=== PATIENT | male | born 1945 | race Caucasian/White ===

== ENCOUNTER 2017-11-05 08:06 | Outpatient (CLI) | payer MEDICARE, OTHER ==
[~2017-11-05] VITALS: Ht 172.7 cm; Wt 84.1 kg
--- NOTE | ~2017-11-05 | HEMODYNAMI ---
PATIENT:KATHERINE PINTO MEDICAL RECORD: [id number] : 41 LOCATION:D.CAT ADMISSION DATE: 11/05/17 Generatedon:11/05/20179:44 Patient name: KATHERINE PINTO Patient #: [id number] SSN: : 1945 Date of study: 11/05/2017 Page: Of Hemodynamic Procedure Report Patient Data Patient Demographics Procedure consent was obtained First Name: KATHERINE Gender: Male Last Name: MILLIE : 1945 Middle Initial: O Age: 72 year(s) Patient #: [id number] Race: Unknown Additional ID: [id number] Contact details Address: [address] [place] [address] ROAD State: [place] City: [place] Zip code: [address] Past Medical History Allergies Allergen Reaction Date Comments Reported Codeine 11/05/2017 Admission Admission Data Admission Date: 11/05/2017 Admission Time: 8:06 Procedure Procedure Types Cath Procedure Diagnostic Procedure LHC LHC w/Coronaries PCI Procedure Coronary Stent Coronary Stent Initial Miscellaneous Procedures Moderate Sedation up to 30 minutes Procedure Description Procedure Date Procedure Date: 11/05/2017 Procedure Start Time: 9:26 Procedure End Time: 9:43 Procedure Staff Name Function Chetan Bean MD Performing Physician Tish Arnold RT Scrub Steve Hines RN Nurse Jazmine Mccracken RT Monitor Procedure Data Cath Procedure Fluoroscopy Diagnostic fluoroscopy Total fluoroscopy Time: 7 time: 7 min min Diagnostic fluoroscopy Total fluoroscopy dose: dose: 403.47 mGy 403.47 mGy Contrast Material Contrast Material Type Amount (ml) Isovue 300 131 Entry Location Entry Primary Successful Side Size Upsize Upsize Entry Closure [place] ccessful Closure Location (Fr) 1 (Fr) 2 (Fr) Remarks Device Remarks Radial Right 6 Fr Mechanical artery Short Compression Estimated blood loss: 10 ml Diagnostic catheters Device Type Used For End Catheter Placement DIAGNOSTIC [place] 110cm 5 LV Angiography Fr catheter ([id number]) DIAGNOSTIC [place] 110cm 5 Left Coronary Fr catheter ([id number]) Angiography DIAGNOSTIC [place] 110cm 5 Right Coronary Fr catheter ([id number]) Angiography Procedure Complications No complications Procedure Medications Medication Administration Route Dosage Oxygen NC 2 l/min Heparin Flush Bag added to field 2 bags (1000units/500ml NS) 0.9% NaCl I.V. 100 ml/hr Radial Cocktail added to field 1 syringe (Verapomil 2mg/Nitro 400mcg/Heparin 1500units) Fentanyl I.V. 50 mcg Versed I.V. 1 mg Radial Cocktail I.A. 1 syringe (Verapomil 2mg/Nitro 400mcg/Heparin 1500units) Fentanyl I.V. 50 mcg Versed I.V. 1 mg Heparin Bolus I.V. 4000 units Integrilin (Bolus I.V. 7.3 ml 2mg/ml) Integrilin (Bolus wasted 2.7 ml 2mg/ml) Plavix P.O. 600 mg Hemodynamics Rest Heart Rate: 56 (bpm) Snapshots Pre Cath Intra NCS Post Cath Vital Signs Time Heart Resp SPO2 etCO2 NIBP (mmHg) Rhythm Pain Sedation Rate (ipm) (%) (mmHg) Status Level (bpm) 9:19:32 55 18 93 36.8 194/79(139) NSR 0 (11) 10(A) , No pain 9:24:02 55 17 97 32.3 175/83(147) NSR 0 (11) 9(A) , No pain 9:28:18 64 18 90 32.3 123/70(99) NSR 0 (11) 9(A) , No pain 9:32:30 56 19 92 29.2 130/69(105) NSR 0 (11) 9(A) , No pain 9:36:50 56 18 94 34.5 125/62(107) NSR 0 (11) 9(A) , No pain 9:41:08 56 19 95 33 139/64(114) NSR 0 (11) 9(A) , No pain 9:42:59 56 17 95 38.2 133/66(110) NSR 0 (11) 9(A) , No pain Medications Time Medication Route Dose Verified Delivered Reason Notes Effectiveness by by 9:19:30 Oxygen NC 2 l/min Chetan Wilson Per physician Vikas Hines RN 9:19:39 Heparin Flush added 2 bags Chetan Wilson used for Bag to Vikas Hines RN procedure (1000units/500ml field NS) 9:19:48 0.9% NaCl I.V. 100 Chetan Wilson Per physician ml/hr Vikas Hines RN 9:19:56 Radial Cocktail added 1 Chetan Wilson used for (Verapomil to syringe Vikas Hines RN procedure 2mg/Nitro field 400mcg/Heparin 1500units) 9:23:18 Fentanyl I.V. 50 mcg Chetan Wilson for sedation Vikas Hines RN 9:23:25 Versed I.V. 1 mg Chetan Hoffmany for sedation Vikas Hines RN 9:26:20 Radial Cocktail I.A. 1 Chetan Chetan for (Verapomil syringe Vikas Bean MD vasodilation 2mg/Nitro 400mcg/Heparin 1500units) 9:28:02 Fentanyl I.V. 50 mcg Chetan Wilson for sedation Vikas Hines RN 9:28:08 Versed I.V. 1 mg Chetan Wilson for sedation Vikas Hines RN 9:32:55 Heparin Bolus I.V. 4000 Chetan Wilson for units Vikas Hines RN anticoagulation 9:34:42 Integrilin I.V. 7.3 ml Chetan Wilson for (Bolus 2mg/ml) Vikas Hines RN anticoagulation 9:34:51 Integrilin wasted 2.7 ml Chetan Wilson for (Bolus 2mg/ml) Vikas Hines RN anticoagulation 9:43:10 Plavix P.O. 600 mg Chetan Wilson for Vikas Hines RN antiplatelet therapy Procedure Log Time Note 8:55:56 Steve Hines RN sent for patient. Start room use. 9:02:16 Time tracking: Regular hours 9:02:20 Plan of Care:Hemodynamics will remain stable., Cardiac rhythm will remain stable., Comfort level will be maintained., Respiratory function will remain adequate., Patient/ family verbilizes understanding of procedure., Procedure tolerated without complication., Recovers from procedure without complications.. 9:02:22 Signed procedure consent form obtained from patient. 9:09:50 Patient received from Pre/Post Procedure Room to [facility] 3 Alert and oriented. Tansferred to table in Supine position. 9:09:51 Warm blankets applied, and osman hugger turned on for patient comfort. 9:09:52 Correct patient and procedure confirmed by team. 9:09:53 ECG and BP/O2 sat monitors applied to patient. 9:17:09 Vital chart was started 9:19:30 Oxygen 2 l/min NC was administered by Steve Hines RN; Per physician; 9:19:39 Heparin Flush Bag (1000units/500ml NS) 2 bags added to field was administered by Steve Hines RN; used for procedure; 9:19:48 0.9% NaCl 100 ml/hr I.V. was administered by Steve Hines RN; Per physician; 9:19:56 Radial Cocktail (Verapomil 2mg/Nitro 400mcg/Heparin 1500units) 1 syringe added to field was administered by Steve Hines RN; used for procedure; 9:21:15 Baseline sample Acquired. 9:21:18 Rhythm: sinus rhythm 9:21:34 Full Disclosure recording started 9:21:51 H&P Date Dictated: 11/05/2017 New H&P dictated by physician.. 9:21:52 Pre-procedure instructions explained to patient. 9:21:52 Pre-op teaching completed and patient verbalized understanding. 9:21:54 Family in waiting room. 9:21:56 Patient NPO since Midnight. 9:22:04 Patient allergic to Codeine 9:22:06 Is the patient allergic to Iodine/contrast media? No. 9:22:14 Is patient on blood thinner?No 9:22:16 Patient diabetic? No. 9:22:18 Previous problem with sedation/anesthesia? No ? 9:22:19 Snore? Yes 9:22:20 Sleep apnea? No 9:22:21 Deviated septum? No 9:22:27 Opens mouth fully? Yes 9:22:27 Sticks out tongue? Yes 9:22:30 Airway obstruction? No ? 9:22:32 Dentures? Yes In 9:22:36 Pre procedure: right dorsailis pedis pulse 2+ Normal; easily identifiable; not easily obliterated 9:22:37 Modified Demarcus's test Ulnar < 7 seconds 9:22:39 Patient pain scale 0/10 ?. 9:22:46 IV patent on arrival in left hand with 0.9% NaCl at [facility]. 9:22:51 Lab results completed and on chart. 9:22:54 Right Radial & Right Groin area was prepped with chlora-prep and draped in sterile fashion 9::55 Alarms reviewed by R. N. 9::55 Sharps counted by scrub and verified by R.N. 9::57 Final Timeout: patient, procedure, and site verified with staff and physician. All members of the team are in agreement. 9::58 Right Radial site verified by team. 9:23:03 Physical assessment completed. ASA score P 2 - A patient with mild systemic disease as per Chetan Bean MD. 9:23:06 Sedation plan: IV Moderate Sedation Medication:Versed, Fentanyl 9:23:18 Fentanyl 50 mcg I.V. was administered by Steve Hines RN; for sedation; 9::25 Versed 1 mg I.V. was administered by Steve Hines RN; for sedation; 9::01 Zero performed for pressure channel P1 9:26:04 Procedure started. 9:26:09 Local anesthetic to right radial artery with Lidocaine 2% by Chetan Bean MD.INITIAL ACCESS ONLY 9:26:17 A 6 Fr Short sheath was inserted into the Right Radial artery 9:26:19 Zero performed for pressure channel P1 9:26:20 Radial Cocktail (Verapomil 2mg/Nitro 400mcg/Heparin 1500units) 1 syringe I.A. was administered by Chetan Bean MD; for vasodilation; 9:26:27 Use device set Radial Dx or PCI 9:26:29 ACIST Syringe (29130) opened to sterile field. 9:26:29 Medline Cath Pack ([id number]) opened to sterile field. 9:26:30 Bag Decanter () opened to sterile field. 9:26:31 SHEATH 6FR Slender ([id number]) opened to sterile field. 9:26:31 DIAGNOSTIC WIRE .035 260cm J wire (568724) opened to sterile field. 9:26:32 ACIST Hand Control (50790) opened to sterile field. 9:26:32 ACIST Manifold (49850) opened to sterile field. 9:26:33 Tegaderm 4 x 4 (1626W) opened to sterile field. 9:26:33 MBrace Wrist Support ([id number]) opened to sterile field. 9:27:28 A DIAGNOSTIC [place] 110cm 5 Fr catheter (512147) was advanced over the wire and used for LV Angiography. 9:28:02 Fentanyl 50 mcg I.V. was administered by Steve Hines RN; for sedation; 9:28:08 Versed 1 mg I.V. was administered by Steve Hines RN; for sedation; 9:29:36 LV gram done using GRAVES 9:29:39 EF : 60 % 9::43 Injector settings: Ml/sec: 5, Volume: 15, 9:30:02 A DIAGNOSTIC [place] 110cm 5 Fr catheter (995767) was advanced over the wire and used for Left Coronary Angiography. 9:31:22 Use device set TAU PCI 9:31:26 INFLATOR Merit BasixCompak (TT9192) opened to sterile field. 9:31:36 CHOICE PT Extra Support 182cm wire ([id number]) opened to sterile field. 9:32:03 A DIAGNOSTIC [place] 110cm 5 Fr catheter (652798) was advanced over the wire and used for Right Coronary Angiography. 9:32:07 Catheter removed. 9:32:25 GUIDE 6FR EBU 3.0 SH catheter ([id number]) opened to sterile field. 9:32:55 Heparin Bolus 4000 units I.V. was administered by Steve Hines RN; for anticoagulation; 9:33:16 6 Fr EBU 3.0 SH guide catheter was inserted over the wire 9:33:45 Choice PT ES wire advanced. 9:34:42 Integrilin (Bolus 2mg/ml) 7.3 ml I.V. was administered by Steve Hines RN; for anticoagulation; 9:34:51 Integrilin (Bolus 2mg/ml) 2.7 ml wasted was administered by Steve Hines RN; for anticoagulation; 9:36:59 GUIDE 6FR EBU 4.0 guide catheter ([id number]) opened to sterile field. 9:39:31 Inflation Number: 1 A ZEHRA RX 2.25 x 12 stent ([id number]) was prepped and advanced across the Prox LAD. The stent was deployed at 9 DENNIS for 0:08 (min:sec). 9:39:53 Stent catheter was removed intact over wire. 9:39:54 Wire removed. 9:39:54 Guide catheter removed. 9:40:01 Sheath removed intact; hemostasis achieved with Mechanical Compression to the Right Radial artery. 9:40:06 TR BAND Standard ([id number]) opened to sterile field. 9:40:23 Procedure ended.(Physican Out) 9:40:39 Fluoroscopy time 07.00 minutes. 9:40:46 Fluoroscopy dose: 403.47 mGy 9:40:46 Flurop Dose total: 403.47 9:40:49 Contrast amount:Isovue 300 131ml. 9:40:51 Sharps counted by scrub and verified by R.N. 9:40:52 TR band inflated with 11cc of air. 9:40:53 Insertion/operative site no bleeding no hematoma. 9:40:58 Post right radial artery:stable, clean and dry 9:41:00 Post Procedure Pulses reassessed and unchanged 9:41:03 Post-procedure physical assessment completed. ASA score P 2 - A patient with mild systemic disease as per Chetan Bean MD. 9:41:05 Post procedure rhythm: unchanged. 9:41:08 Estimated blood loss: 10 ml 9:41:09 Post procedure instruction explained to patient.Patient verbalizes understanding. 9:41:09 Patient needs reinforcement of post procedure teaching. 9:41:21 Procedure type changed to Cath procedure, Diagnostic procedure, LHC, LHC w/Coronaries, PCI procedure, Coronary Stent, Coronary Stent Initial, Miscellaneous Procedures, Moderate Sedation up to 30 minutes 9:41:28 Procedure Complication : No complications 9:41:48 See physician's report for complete and final results. 9:43:10 Plavix 600 mg P.O. was administered by Steve Hines RN; for antiplatelet therapy; 9:43:29 Procedure and supply charges have been captured, reviewed, submitted and are correct. 9:43:30 Vital chart was stopped 9:43:32 Report given to Pre/Post Procedure Room. 9:43:34 Patient transfered to Pre/Post Procedure Room with Stretcher. 9:43:37 Procedure ended. 9:43:37 Full Disclosure recording stopped 9:43:49 End room use (Document Last) Intervention Summary Intervention Notes Time ActionType Lesion and Equipment Used Action# Pressure Duration Attributes 9:39:31 [address] stent Prox LAD ZEHRA RX 2.25 x 1 9 00:08 12 stent ([id number]) Device Usage Item Name Manufacture Quantity Catalog Number Hospital Part Current M inimal Lot# / Charge Number Stock Stock Serial# Code ACIST Syringe Acist 1 66048 239458 976457 566916 2 0 (65322) Medical Systems Inc Medline Cath Cardinal 1 [id number] 111257 53501 951245 5 Pack Health ([id number]) Bag Decanter Microtek 1 2001S 758705 38458 038423 5 () Medical Inc. SHEATH 6FR Terumo 1 [id number] 153946 377523 553359 4 0 Slender ([id number]) DIAGNOSTIC [place] 1 636912 808282 887529 107110 3 0 WIRE .035 260cm J wire (182872) ACIST Hand Acist 1 65459 566225 467372 412353 5 Control Medical (35833) Systems Inc ACIST Manifold Acist 1 41022 583911 006516 931888 5 (56680) Medical Systems Inc Tegaderm 4 x 4 3M 1 1626W 721709 880191 534329 5 (1626W) MBrace Wrist Advanced 1 140-0250-00 714447 27655 184042 5 Support Vascular ([id number]) Dynamics DIAGNOSTIC Terumo 1 40-5013 014515 179591 767965 5 [place] 110cm 5 Fr catheter (519468) INFLATOR Merit Merit 1 GC7777 580692 844149 378731 1 5 ProMetic Life SciencesazSarkitech Sensors (OP9379) CHOICE PT [place] 1 [id number] 117600 067154 647990 5 Extra Support Scientific 182cm wire ([id number]) GUIDE 6FR EBU Medtronic 1 [id number] 757063 20287 381249 0 3.0 SH catheter ([id number]) GUIDE 6FR EBU Medtronic 1 [id number] 652087 59644 921694 1 4.0 guide catheter (EV7PVM34) ZEHRA RX 2.25 x Medtronic 1 [id number] 439868 6113605 172939 5 [id number] 12 stent ([id number]) TR BAND Terumo 1 [id number] 649248 433372 570027 4 0 Standard ([id number]) Signature Audit [place] Stage Time Signature Unsigned Intra-Procedure 11/05/2017 Jazmine 9:44:29 AM Counts RT(R) Signatures Monitor : Jazmine Signature : Counts RT Date : Time : [address] [place] [address]
--- NOTE | ~2017-11-05 | OP ---
PATIENT NAME: KATHERINE PINTO MEDICAL RECORD: [id number] :41 LOCATION:D.CAT ADMISSION DATE: SURGEON: TUCKER EDWARDS MD DATE OF OPERATION: 11/05/2017 PROCEDURES: 1. PTCA stent to LAD. 2. Left heart catheterization. 3. Selective coronary angiography. 4. Left ventriculogram. INDICATION: Angina and coronary artery disease. PROCEDURE IN DETAIL: After informed consent was obtained and after detailed explanation of risks, benefits as well as alternative therapies, the patient elected to proceed with angiogram and angioplasty. The right radial area was prepped and draped in normal sterile fashion. The right radial artery was cannulated via modified Seldinger technique with placement of 6-Chilean sheath. All catheters exchanged through this sheath. FINDINGS: Left ventriculogram was performed in standard 30-degree GRAVES view, reveals preserved cardiac wall motion, ejection fraction 50%. SELECTIVE CORONARY ANGIOGRAPHY: 1. Left main showed no significant angiographic disease. 2. Left anterior descending at the bifurcation of the LAD diagonal has 80-85% stenosis. This includes the ostium of the diagonal. 3. Left circumflex shows moderate irregularities, but no flow-limiting stenosis. 4. Right coronary artery has moderate irregularities, but no flow-limiting stenosis. PTCA STENT OF THE LAD: We placed a stent in the LAD and the ostium of the diagonal. It was a 2.25 x 12 [place] stent. Result was 0% residual stenosis. OVERALL IMPRESSION: Successful percutaneous transluminal coronary angioplasty stent of the left anterior descending and diagonal going from 85+ percent initial stenosis to 0% residual. TRANSINT:[id number] Voice Confirmation ID: [id number] DOCUMENT ID: [id number] TUCKER EDWARDS MD at 1323 CC: [id number] DICTATION DATE: 11/05/17 0944 CIGAR MAKING MACHINE SUPERVISOR: 11/05/17 1124 DEP CLI 11/05/17 [place] [id number] [place] [id number]
--- NOTE | ~2017-11-05 | HP ---
PATIENT: KATHERINE PINTO MEDICAL RECORD: [id number] ACCOUNT: [id number] LOCATION:HATTIE : 41 ADMISSION DATE: 11/05/17 HISTORY AND PHYSICAL EXAMINATION DIAGNOSES: 1. Angina. 2. Shortness of breath. 3. Coronary artery disease. 4. Abnormal nuclear stress test. 5. Hyperlipidemia. 6. Hypertension. HISTORY OF PRESENT ILLNESS: This is a gentleman who presents with anginal symptomatology, shortness of breath, underwent risk stratification with stress testing and Cardiolite imaging revealing significant reversibility, now brought for cardiac catheterization. PHYSICAL EXAMINATION: GENERAL APPEARANCE: Well-nourished, well-developed, appears stated age. Level of distress, comfortable. PSYCHIATRIC: Mental status, alert, normal affect. Orientation, oriented to time, place and person. EYES: Lids and conjunctiva, noninjected. No discharge, no pallor. ENT: Lips, teeth, gums, normal dentition. Oropharynx, no cyanosis, no pallor. NECK: Carotid arteries, bilateral normal upstroke, no bruits, no thrills. JUGULAR VEINS: No jugular venous pressure or distention. CERVICAL LYMPH NODES: Nontender, nonenlarged. THYROID: Not enlarged. Nontender. No nodules. LUNGS: Respiratory effort, unlabored. CHEST: Normal curvature. No thoracic deformity. No chest wall tenderness. Percussion, resonant. Auscultation, clear. No wheezes, no rales, no rhonchi. CARDIOVASCULAR: Precordial exam, nondisplaced. No heaves or pericardial thrills. Rate and rhythm, regular. Heart sounds, normal S1, normal S2. No S3, no gallop, no rub. Systolic murmur, not heard. Diastolic murmur, not heard. EXTREMITIES: No cyanosis, no edema. Peripheral pulses, full and equal in all extremities, except as noted. No bruits appreciated. ABDOMEN: Soft, nondistended. Normal aorta. No bruit. Nontender. No masses. Liver, nontender, no hepatomegaly. Spleen, nontender, no splenomegaly. MUSCULOSKELETAL: No joint tenderness. No joint swelling. No erythema. NEUROLOGICAL: Normal gait, normal strength, normal tone. SKIN: Warm and dry. REVIEW OF SYSTEMS: The patient reports easy bruising but reports no swollen glands. The patient reports no fever, no night sweats, no significant weight gain, no significant weight loss. No significant exercise tolerance. The patient reports no dry eyes, no irritation, no vision change. Patient reports no difficulty hearing and no ear pain. Patient reports no frequent nose bleeds or nose and sinus problems. Patient reports on arm pain on exertion. No shortness of breath while lying down. No history of heart murmur. Patient reports no cough, no wheezing or coughing up blood. Patient reports no abdominal pain, no vomiting. Normal appetite. No diarrhea and not vomiting blood. No nausea and no constipation. Patient reports no incontinence. No difficulty urinating. No hematuria. No increased frequency. Patient reports no muscle aches. No weakness, no arthralgias, no back pain. No swelling of the HISTORY AND PHYSICAL [id number] SHARPKATHERINE O extremities. Patient reports no abnormal mole, no jaundice, no rashes. Reports no loss of consciousness. No weakness and no numbness. No seizures, dizziness, or headaches. The patient reports no depression, no sleep disturbance, feeling safe in a relationship and no alcohol abuse. Patient reports on fatigue. Reports no runny nose or sinus pressure. No itching, no hives, and no frequent sneezing. OVERALL IMPRESSION: Anginal symptomatology with abnormal nuclear stress test in a patient with a past history of coronary artery disease, most likely he has significant coronary artery disease. We will proceed with coronary angiography. Further care depends upon findings of the angiography. TRANSINT:[id number] Voice Confirmation ID: [id number] DOCUMENT ID: [id number] TUCKER EDWARDS MD at 1323 CC: [id number] DICTATION DATE: 11/05/17847 DIRECTOR DIGITAL STRATEGY: 11/05/17 0902 DEP CLI 11/05/17 [facility] [address] [place] [address]
[~2017-11-05 08:06] MED LIST: BAYER CHEWABLE81 MG PO; PLAVIX75 MG PO; PRAVACHOL40 MG PO; ZIAC 10-6.25 MG1 TAB PO
[2017-11-05] MEDS ORDERED: ZYLOPRIM100 MG PO (08:41)
[2017-11-05] MEDS ORDERED: CENTRUM MEN'S1 EACH PO (08:41)
[2017-11-05 08:50] VITALS: BP 212/84; Ht 172.7 cm; Wt 84.1 kg
[2017-11-05 08:58] LABS: BASOPHILS 0.1 % (0-2); EOSINOPHILS 1.6 % (0-7); HEMATOCRIT 44.2 % (42.0-54.0); HEMOGLOBIN 15.6 g/dL (13.5-17.5); IMMATURE GRANULOCYTES 0.2 % (0-5); LYMPHOCYTES 29.9 % (15-50); MCH 34.2 pg (26.0-34.0); MCHC 35.3 g/dL (31.0-37.0); MCV 96.9 fL (80.0-100.0); MEAN PLATELET VOLUME 10.4 fL (7.4-10.4); MONOCYTES 8.1 % (2-11); NEUTROPHILS 60.1 % (40-80); RBC 4.56 10x6/uL (4.20-6.10); RDW 12.4 % (11.5-14.5); WBC 8.8 10x3/uL (4.8-10.8)
[2017-11-05 09:02] LABS: PLATELET COUNT 162 10x3/uL (130-400)
[2017-11-05 09:15] LABS: ANION GAP 14.8 mmol/L (8-16); CALCIUM 9.3 mg/dL (8.5-10.1); CARBON DIOXIDE 24.1 mmol/L (21.0-32.0); CREATININE - SERUM 1.3 mg/dL (0.6-1.3); POTASSIUM - SERUM 3.9 mmol/L (3.5-5.1)
[2017-11-05] MEDS ORDERED: PLAVIX75 MG PO (10:22)
== END 2017-11-05 13:45 | disposition home or self-care (01) ==
LOC: D.CATH 08:06
PROVIDERS: Internal Medicine Interventional Cardiology
DX: I25.119 Atherosclerotic heart disease of native coronary artery with unspecified angina pectoris (principal); E78.5 Hyperlipidemia, unspecified; R06.02 Shortness of breath; I10 Essential (primary) hypertension; R94.30 Abnormal result of cardiovascular function study, unspecified; Z01.812 Encounter for preprocedural laboratory examination
CPT/HCPCS: 93458; C9600

== ENCOUNTER 2018-08-14 08:00 | Outpatient (CLI) | payer MEDICARE, OTHER ==
[~2018-08-14 08:00] MED LIST changes: +CENTRUM MEN'S1 EACH PO; +ZYLOPRIM100 MG PO
[2018-08-14] MEDS ORDERED: OMEPRAZOLE20 M1 PO (14:10)
[2018-08-19 13:17] VITALS: BMI 30.6
== END 2018-08-14 08:01 | disposition home or self-care (01) ==
LOC: D.OPS 08:00 → D.US 15:00
DX: I71.4 Abdominal aortic aneurysm, without rupture (principal); Z01.810 Encounter for preprocedural cardiovascular examination; Z01.811 Encounter for preprocedural respiratory examination; Z01.812 Encounter for preprocedural laboratory examination; Z53.9 Procedure and treatment not carried out, unspecified reason

== ENCOUNTER 2018-08-18 05:05 | Inpatient (IN) | payer MEDICARE, OTHER ==
[2018-08-14 15:25] LABS: BASOPHILS 0.1 % (0-2); EOSINOPHILS 1.5 % (0-7); HEMATOCRIT 43.1 % (42.0-54.0); HEMOGLOBIN 15.5 g/dL (13.5-17.5); IMMATURE GRANULOCYTES 0.4 % (0-5); LYMPHOCYTES 27.4 % (15-50); MCH 34.8 pg (26.0-34.0); MCV 96.6 fL (80.0-100.0); MEAN PLATELET VOLUME 10.2 fL (7.4-10.4); MONOCYTES 8.2 % (2-11); NEUTROPHILS 62.4 % (40-80); PLATELET COUNT 173 10x3/uL (130-400); RBC 4.46 10x6/uL (4.20-6.10); RDW 12.7 % (11.5-14.5); WBC 8.2 10x3/uL (4.8-10.8)
[2018-08-14 15:32] LABS: APPEARANCE CLEAR (CLEAR); BILIRUBIN NEGATIVE (NEGATIVE); COLOR YELLOW (YELLOW); GLUCOSE NEGATIVE (NEGATIVE); KETONE NEGATIVE (NEGATIVE); NITRITE NEGATIVE (NEGATIVE); PROTEIN NEGATIVE (NEGATIVE); SPECIFIC GRAVITY 1.015 (1.005-1.020); UROBILINOGEN NORMAL (NORMAL)
[2018-08-14 15:35] LABS: INR 0.93 (0.85-1.17)
[2018-08-14 15:56] LABS: ALBUMIN 3.7 g/dL (3.4-5.0); ANION GAP 10.7 mmol/L (8-16); BILIRUBIN - TOTAL 1.25 mg/dL (0.2-1.3); CALCIUM 9.1 mg/dL (8.5-10.1); CARBON DIOXIDE 30.3 mmol/L (21.0-32.0); CREATININE - SERUM 1.3 mg/dL (0.6-1.3)
[2018-08-18] VITALS (58 sets, daily range): BP systolic 92–166; BP diastolic 36–72; BMI 28.6; BMI 29.7
[~2018-08-18] VITALS: Ht 172.7 cm; Wt 86.6 kg
--- NOTE | ~2018-08-18 | MORECARE ---
CASE MANAGEMENT DISCHARGE SUMMARY PATIENT: KATHERINE PINTO UNIT: [id number] ADM DATE: 08/18/18 AGE: 72 : 41 SEX: M ROOM/BED: D[facility] AUTHOR: HOLDEN,DOC PHYSICIAN: REFERRING PHYSICIAN: YOVANA MARSHALL MD DATE OF SERVICE: 08/19/18 Discharge Plan Patient Name: KATHERINE PINTO [facility] [facility] 1945 Planned Disposition: Home Anticipated Discharge Date: Discharge Date: Expected LOS: Initial Reviewer: [email or web address] Initial Review Date: 08/18/2018 Generated: 08/19/18 6:51 pm Comments DCP- Discharge Planning Updated by [email or web address]: Olivia Lorenzo on 08/19/18 4:[address] Patient Name: KATHERINE PINTO Admission Status: Elective Accout number: [id number] Admission Date: 08-18-2018 : 1945 Admission Diagnosis: Attending: YOVANA MARSHALL Current LOS: 1 Anticipated DC Date: Planned Disposition: Home Primary Insurance: MEDICARE A & B Discharge Planning Comments: CM met with patient at bedside after obtaining verbal consent. Patient states he plans on returning home alone after discharge . Patient will have family checking in on him. Patient states he will have family transport him home via private vehicle. Patient denies any discharge needs at this time. CM will continue to follow and assist as needed for discharge planning / needs. Marketing Executive: Olivia Lorenzo DCPIA - Discharge Planning Initial Assessment Updated by [email or web address]: Olviia Lorenzo on 08/19/18 5:23 pm * Is the patient Alert and Oriented? Yes * How many steps to enter\exit or inside your home? * PCP Dr. Lincoln Wiley * Pharmacy [facility] * Preadmission Environment Home Alone * ADLs Independent * Equipment None * List name and contact numbers for known caregivers / representatives who currently or will assist patient after discharge: OLIVIA LORENZO [phone], , * Verbal permission to speak to the caregivers and representatives has been obtained from the patient. N/A * Community resources currently utilized None * Additional services required to return to the preadmission environment? No * Can the patient safely return to the preadmission environment? Yes * Has this patient been hospitalized within the prior 30 days at any hospital? No Last DP export: 08/19/18 4:27 Patient Name: KATHERINE PINTO Page [id number] at 1751 All edits/amendments must be made on the electronic document DICTATION DATE: 08/19/181749 RN HOUSE SUPERVISOR: CARMELO 08/19/181749 RPT#: [id number] DC DATE: STATUS: ADM IN [facility] [address] [place] [address] END OF REPORT
--- NOTE | ~2018-08-18 | HP ---
PATIENT: KATHERINE PINTO MEDICAL RECORD: [id number] ACCOUNT: [id number] LOCATION:[facility] : 41 ADMISSION DATE: 08/18/18 PCP: YOVANA MARSHALL MD HISTORY AND PHYSICAL EXAMINATION KATHERINE Fountain (72yo, M) ID# [id number]. Date/Time08/07/2018 11:29AVFLC51/05/194Service Dept.NP_[facility] ClinicProviderEDJENNI MARSHALL MDInsuranceMed Primary: [place] Insurance # : [id number] Referring Provider Name : BHUMIKA NEFF Employer Name : RETIRED Med Secondary: [employer] Insurance # : [id number] Referring Provider Name : BHUMIKA NEFF Employer Name : RETIRED Prescription: CMX - Member is eligible. Chief Complaint AAA, abdominal aortic aneurysm referral for AAA Patient's Care Team Referring Provider (): BHUMIKA NEFF: [address] [place] [address], , Buffer Chrome: TUCKER EDWARDS MD Vitals BP:148/76 sitting R arm 08/07/2018 11:35 amBP Cuff Size:adult 08/07/2018 11:35 amHR:66,reg 08/07/2018 11:35 amHt:5 ft 8 in 08/07/2018 11:36 amWt:188 lbs 08/07/2018 11:36 amNotes:aneurysm observed for past 5 years. has leg pain and foot pain at night. bilat hip pain with walking.08/07/2018 11:36 amBMI:28.6 08/07/2018 11:36 amAllergies Reviewed Allergies CODEINE: - swellingMedications Reviewed Medications allopurinol 100 mg ysfjtl00/27/18 filledCaremarkaspirin 325 mg tablet Take 1 tablet(s) every day by oral route.08/07/18 enteredKathy Wilsonbisoprolol 10 mg-hydrochlorothiazide 6.25 mg ombquu38/27/18 filledCaremarkomeprazole 20 mg capsule,delayed sewxvqx52/27/18 filledCaremarkpravastatin 40 mg yoqyxc79/27/18 filledCaremarksimvastatin 40 mg xaomov55/25/18 filledCaremarkProblems Reviewed Problems Abdominal aortic aneurysm - Onset: 08/07/2018 Family History Reviewed Family History Mother- Heart diseaseSocial History Reviewed Social History Cardiology Family history of heart disease?: Y Smoking Status: Former smoker (Notes: quit date 2000) Smoker (1 PPD) (Notes: smokeless tobacco) High Cholesterol: Y High blood pressure: Y Alcohol intake: Occasional Occupation: retired Marital status: Tobacco-years of use: 30 HISTORY AND PHYSICAL [id number] KATHERINE PINTO Surgical History Reviewed Surgical History Past Medical History Reviewed Past Medical History Cancer: Y - prostate Hyperlipidemia: Y Hypertension: Y Aneurysmn (specify): (no answer) - AAA Notes: GALLBLADDER DISEASE Documents for Discussion N/A Screening None recorded. HPI Peripheral Vascular Disease Reported by patient. Location: calf; foot; hips Quality: cramping; aching Severity: interferes with normal activity Duration: has noted for years Onset/Timing: at night; daily Context: during walking; at rest Alleviating Factors: rest Aggravating Factors: walking; sleeping Abdominal aortic aneurysm ROS Patient reports exercise intolerance (Bilateral hip pain) but reports no fever, no night sweats, no significant weight gain, and no significant weight loss. He reports chest pain on exertion (Before stents none since Follow-up with in April was satisfactory) but reports no arm pain on exertion, no shortness of breath when walking, no shortness of breath when lying down, no palpitations, and no known heart murmur. He reports abdominal pain (Occasional due to cholelithiasis) and nausea (Occasional) but reports no vomiting, normal appetite, no diarrhea, not vomiting blood, and no constipation. He reports muscle aches and arthralgias/joint pain but reports no muscle weakne ss, no back pain, and no swelling in the extremities. He reports no dry eyes, no irritation, and no vision change. He reports no difficulty hearing and no ear pain. He reports no frequent nosebleeds and no nose/sinus problems. He reports no sore throat, n o bleeding gums, no snoring, no dry mouth, no mouth ulcers, no oral abnormalities, and no teeth problems. He reports no jugular vein distension and no swollen glands. He reports no cough, no wheezing, no shortness of breath, and no coughing up blood. He re p orts no incontinence, no difficulty urinating, no hematuria, and no increased frequency. He reports no abnormal mole, no jaundice, and no rashes. He reports no loss of consciousness, no weakness, no numbness, no seizures, no dizziness, and no headaches. H e reports no depression, no sleep disturbances, feeling safe in relationship, and no alcohol abuse. He reports no fatigue. He reports no swollen glands and no bruising. He reports no runny nose, no sinus pressure, no itching, no hives, and no frequent snee zing. ROS as noted in the HPI Physical Exam Patient is a 72-year-old male. Constitutional: General Appearance well nourished and developed and healthy-appearing. Level of Distress NAD. Ambulation ambulating normally. HISTORY AND PHYSICAL [id number] KATHERINE PINTO Cardiovascular: Apical Impulse not di splaced or no thrill. Heart Auscultation normal s1 and s2; no murmurs, rubs, or gallops; and RRR. Arterial Pulses no abdominal aorta bruits, femoral bruits, or popliteal bruits and 2+ bilateral, carotid 2+ bilateral, femoral 2+ bilateral, popliteal 2+ gem ateral, and dorsalis pedis 2+ bilateral. Edema no edema or varicosities. Lungs: Repiratory Effort no dyspnea. Percussion no hyperresonance or dullness or flatness. Auscultation no wheezing, rhonchi, or rales / crackles and breathing sounds normal, good air movement, and CTA except as noted. Abdomen: Bowl Sounds normal. Inspection and Palpation no tenderness, guarding, masses, or rebound tenderness and soft and non-distended; Abdominal aortic aneurysm nontender. Liver non-tender and no hepatomegaly. Spleen non-tender and no splenomegaly. Hernia none palpable. Musculoskeletal System: Gait And Stance normal gait and stance. Digits and Nails normal nails and no cyanosis. Joints, Bones, and Muscles limited ROM and abnormal strength. Neurologic: Cranial Nerves grossly intact. Reflexes DTRs 2+ bilaterally throughout. Sensation grossly intact. Lymph Nodes: Lymph Nodes no cervical LAD, supraclavicular LAD, axillary LAD, or inguinal LAD. Eyes: Lids and Conjunctivae no discharge or pallor and non-injected. Pupils PERRLA. Cornea grossly intact. EOM EOMI. Lens clear. Sclerae non-icteric. Neck: Neck no masses, enlarged lymph nodes, or carotid bruits and supple and trachea midline. Thyroid no enlargement or nodules and non-tender. Skin: Inspection and Palpation no rash, lesions, ulcers, jaundice, or abnormal nevi. Assessment / Plan Abdominal aortic aneurysm 5.4 cm in diameter 1. Abdominal aortic aneurysm I71.4: Abdominal aortic aneurysm, without rupture Discussion Notes I have discussed the patient's disease process with him and His daughter in detail as well as the alternative methods of treatment. We discussed endovascular stent repair of abdominal aortic aneurysm And open repair including the expected benefits and ris k, which include bleeding, infection, stroke, , and the imponderables.Family understand all of the above and he wishes to proceed with operation as planned. HISTORY AND PHYSICAL [id number] KATHERINE PINTO EDWARD MD at 1216 CC: [id number] DICTATION DATE: 08/07/18 1100 RADIAL ARM SAW OPERATOR: CARMELO 08/10/18 1620 PRE IN [facility] [address] [place] [address]
--- NOTE | ~2018-08-18 | MORECARE ---
CASE MANAGEMENT DISCHARGE SUMMARY PATIENT: KATHERINE PINTO UNIT: [id number] ADM DATE: 08/18/18 AGE: 72 : 41 SEX: M ROOM/BED: D[facility] AUTHOR: HOLDEN,DOC PHYSICIAN: REFERRING PHYSICIAN: YOVANA MARSHALL MD DATE OF SERVICE: 08/21/18 Discharge Plan Patient Name: KATHERINE PINTO Facility: [facility]:[place] : 1945 Planned Disposition: Home Anticipated Discharge Date: Discharge Date: 08/21/2018 Expected LOS: Initial Reviewer: [email or web address] Initial Review Date: 08/18/2018 Generated: 08/21/18 8:56 pm Comments DCP- Discharge Planning Updated by [email or web address]: Olivia Lorenzo on 08/21/18 5:[address] Late Entry 08/21/18 @ 1322 IMM explained and served 08/21/18 @ 1322 CM will continue to follow and assist as needed with discharge planning / needs. DCP- Discharge Planning Updated by [email or web address]: Olivia Lorenzo on 08/19/18 4:[address] Patient Name: KATHERINE PINTO Admission Status: Elective Accout number: [id number] Admission Date: 08-18-2018 : 1945 Admission Diagnosis: Attending: YOVANA MARSHALL Current LOS: 1 Anticipated DC Date: Planned Disposition: Home Primary Insurance: MEDICARE A & B Discharge Planning Comments: CM met with patient at bedside after obtaining verbal consent. Patient states he plans on returning home alone after discharge . Patient will have family checking in on him. Patient states he will have family transport him home via private vehicle. Patient denies any discharge needs at this time. CM will continue to follow and assist as needed for discharge planning / needs. Truck Manager: Olivia Lorenzo DCPIA - Discharge Planning Initial Assessment Updated by [email or web address]: Olivia Lorenzo on 08/19/18 5:23 pm * Is the patient Alert and Oriented? Yes * How many steps to enter\exit or inside your home? * PCP Dr. Lincoln Wiley * Pharmacy [facility] * Preadmission Environment Home Alone * ADLs Independent * Equipment None * List name and contact numbers for known caregivers / representatives who currently or will assist patient after discharge: OLIVIA JACINTOR [phone], , * Verbal permission to speak to the caregivers and representatives has been obtained from the patient. N/A * Community resources currently utilized None * Additional services required to return to the preadmission environment? No * Can the patient safely return to the preadmission environment? Yes * Has this patient been hospitalized within the prior 30 days at any hospital? No Coverage Notice Reviewer: [email or web address] - Oliviaimer Jacintor Notice Issued Date-Time: 08/21/2018 13:22 Notice Type: IM Discharge Notice Notice Delivered To: Patient Relationship to Patient: Self Principal Web Developer Name: Delivery Method: HAND - Hand Delivered Elham Days: Prior Verbal Notification: Recipient Understood Notice: Yes Recipient Signature: Yes Med Rec Note Co-signed by Attending: Coverage Notice Comment: Last DP export: 08/21/18 5:12 Patient Name: KATHERINE PINTO Page [id number] at 1955 All edits/amendments must be made on the electronic document DICTATION DATE: 08/21/181955 TANK FURNACE OPERATOR: CARMELO 08/21/181955 RPT#: [id number] DC DATE:08/21/18 STATUS: DIS IN [facility] [address] [place] [address] END OF REPORT
--- NOTE | ~2018-08-18 | MORECARE ---
CASE MANAGEMENT DISCHARGE SUMMARY PATIENT: KATHERINE PINTO UNIT: [id number] ADM DATE: 08/18/18 AGE: 72 : 41 SEX: M ROOM/BED: D[facility] AUTHOR: HOLDEN,DOC PHYSICIAN: REFERRING PHYSICIAN: YOVANA MARSHALL MD DATE OF SERVICE: 08/21/18 Discharge Plan Patient Name: KATHERINE PINTO Facility: [facility]:[place] : 1945 Planned Disposition: Home Anticipated Discharge Date: Discharge Date: Expected LOS: Initial Reviewer: [email or web address] Initial Review Date: 08/18/2018 Generated: 08/21/18 7:11 pm Comments DCP- Discharge Planning Updated by [email or web address]: Olivia Lorenzo on 08/21/18 5:[address] Late Entry 08/21/18 @ 1322 IMM explained and served 08/21/18 @ 1322 CM will continue to follow and assist as needed with discharge planning / needs. DCP- Discharge Planning Updated by [email or web address]: Olivia Lorenzo on 08/19/18 4:[address] Patient Name: KATHERINE PINTO Admission Status: Elective Accout number: [id number] Admission Date: 08-18-2018 : 1945 Admission Diagnosis: Attending: YOVANA MARSHALL Current LOS: 1 Anticipated DC Date: Planned Disposition: Home Primary Insurance: MEDICARE A & B Discharge Planning Comments: CM met with patient at bedside after obtaining verbal consent. Patient states he plans on returning home alone after discharge . Patient will have family checking in on him. Patient states he will have family transport him home via private vehicle. Patient denies any discharge needs at this time. CM will continue to follow and assist as needed for discharge planning / needs. Microchip Specialist: Olivia Lorenzo DCPIA - Discharge Planning Initial Assessment Updated by [email or web address]: Olivia Lorenzo on 08/19/18 5:23 pm * Is the patient Alert and Oriented? Yes * How many steps to enter\exit or inside your home? * PCP Dr. Lincoln Wiley * Pharmacy [facility] * Preadmission Environment Home Alone * ADLs Independent * Equipment None * List name and contact numbers for known caregivers / representatives who currently or will assist patient after discharge: OLIVIA LORENZO [phone], , * Verbal permission to speak to the caregivers and representatives has been obtained from the patient. N/A * Community resources currently utilized None * Additional services required to return to the preadmission environment? No * Can the patient safely return to the preadmission environment? Yes * Has this patient been hospitalized within the prior 30 days at any hospital? No Coverage Notice Reviewer: [email or web address] - Olivia Lorenzo Notice Issued Date-Time: 08/21/2018 13:22 Notice Type: IM Discharge Notice Notice Delivered To: Patient Relationship to Patient: Self Cleaning Porter Name: Delivery Method: HAND - Hand Delivered Elham Days: Prior Verbal Notification: Recipient Understood Notice: Yes Recipient Signature: Yes Med Rec Note Co-signed by Attending: Coverage Notice Comment: Last DP export: 08/19/18 4:51 Patient Name: KATHERINE PINTO Page [id number] at 1812 All edits/amendments must be made on the electronic document DICTATION DATE: 08/21/181810 INDUSTRIAL MAINTENANCE TECHNICIAN: CARMELO 08/21/181810 RPT#: [id number] DC DATE: STATUS: ADM IN [facility] [address] [place] [address] END OF REPORT
--- NOTE | ~2018-08-18 | OP ---
PATIENT NAME: KATHERINE PINTO MEDICAL RECORD: [id number] :41 LOCATION:D.I D.CV06 ADMISSION DATE:08/18/18 SURGEON: YOVANA MARSHALL MD DATE OF OPERATION: 08/18/2018 SURGEON: Yovana Marshall MD ANESTHESIA: General, Dr. Courtney. FABRICATION INSPECTOR: Dr. Kearns. OPERATION PERFORMED: 1. Endovascular stent repair. 2. Open right common femoral artery exposure with ProGlide, 75020. 3. Percutaneous access left with a closure device, 39117. 4. Endovascular repair with deployment of an aortobiiliac endograft, 77777. PREOPERATIVE DIAGNOSIS: Abdominal aortic aneurysm. POSTOPERATIVE DIAGNOSIS: Abdominal aortic aneurysm. INDICATION FOR OPERATION: Large abdominal aortic aneurysm. ESTIMATED BLOOD LOSS: Less than 100 mL. CONTRAST: 90 mL. FLUOROSCOPY TIME: 15 minutes 45 seconds. The images are kept in the [facility] 9900 and PACS for review. DESCRIPTION OF PROCEDURE: After informed consent, adequate preoperative medication evaluation, the patient was brought to the operating room, placed on the table in the supine position. After induction of general endotracheal anesthesia and application of appropriate monitoring devices, the chest, neck, abdomen, and both legs were prepped and draped in a sterile field, utilizing Betadine scrub, alcohol, and Betadine solution. Betadine-impregnated drape was also used. A small incision was made on the right with ultrasound guidance and a Perclose device used times 2 in the common femoral artery. After cannulation with a 6-Guinean sheath, exchange was made for the Endologix sheath. Attention was then turned towards the left groin. A percutaneous micropuncture was made of the left common femoral artery and a 6-Guinean sheath placed. A wire was placed into the aorta and a snare catheter was placed on the contralateral side. The ipsilateral side was then cannulated with the bifurcated device and the contralateral wire placed through the sheath and snared from the left and brought through the sheath. The main body was then placed in the aorta and sat on the bifurcation. The main body was deployed. A wire was placed with the pigtail catheter in the contralateral side. The right ipsilateral limb was then deployed and the sheath placed into the proximal abdominal aorta. Extension cuff was then placed after arteriogram demonstrated the renal arteries. The right side required predilation with a 9 x 40 balloon before the sheath could be introduced into the aorta. The right limb of the graft was then also dilated with a 9 x 40 balloon. A Reliant balloon was used to expand the aortic portion of the graft as well as the distal portion of the main body and aortogram then demonstrated good aneurysm exclusion with no endoleaks. The wires, catheters OPERATIVE REPORT [id number] KATHERINE PINTO and sheaths were removed after arteriogram demonstrated good closure of the right common femoral artery with the Perclose device. The skin on the right was closed with an interrupted 5-0 Monocryl suture. An Angio-Seal 8-Guinean was used on the left for closure. The patient was given a calculated dose of protamine to reverse the heparin that was given as the first sheath was placed. Hemostasis was achieved. The patient had good distal pulses. Sterile dressings were applied. The patient tolerated the procedure well and was transferred to the CV ICU in satisfactory condition. TRANSINT:[id number] Voice Confirmation ID: [id number] DOCUMENT ID: [id number] YOVANA MARSHALL MD at 1547 CC: [id number] DICTATION DATE: 08/18/18 1124 PRODUCER DIRECTOR: 08/18/18 1322 ADM IN [facility] [address] [place] [id number]
--- NOTE | ~2018-08-18 | MORECARE ---
CASE MANAGEMENT DISCHARGE SUMMARY PATIENT: KATHERINE PINTO UNIT: [id number] ADM DATE: 08/18/18 AGE: 72 : 41 SEX: M [facility] AUTHOR: HOLDEN,DOC PHYSICIAN: REFERRING PHYSICIAN: YOVANA MARSHALL MD DATE OF SERVICE: 08/19/18 Discharge Plan Patient Name: KATHERINE PINTO [facility] [facility] 1945 Planned Disposition: Home Anticipated Discharge Date: Discharge Date: Expected LOS: Initial Reviewer: [email or web address] Initial Review Date: 08/18/2018 Generated: 08/19/18 6:27 pm Comments DCP- Discharge Planning Updated by [email or web address]: Olivia Lorenzo on 08/19/18 4:[address] Patient Name: KATHERINE PINTO Admission Status: Elective Accout number: [id number] Admission Date: 08-18-2018 : 1945 Admission Diagnosis: Attending: YOVANA MARSHALL Current LOS: 1 Anticipated DC Date: Planned Disposition: Home Primary Insurance: MEDICARE A & B Discharge Planning Comments: CM met with patient at bedside after obtaining verbal consent. Patient states he plans on returning home alone after discharge . Patient will have family checking in on him. Patient states he will have family transport him home via private vehicle. Patient denies any discharge needs at this time. CM will continue to follow and assist as needed for discharge planning / needs. Nuclear Security Officer: Olivia Lorenzo DCPIA - Discharge Planning Initial Assessment Updated by [email or web address]: Olivia Lorenzo on 08/19/18 5:23 pm * Is the patient Alert and Oriented? Yes * How many steps to enter\exit or inside your home? * PCP Dr. Lincoln Wiley * Pharmacy [facility] * Preadmission Environment Home Alone * ADLs Independent * Equipment None * List name and contact numbers for known caregivers / representatives who currently or will assist patient after discharge: OLIVIA LORENZO [phone], , * Verbal permission to speak to the caregivers and representatives has been obtained from the patient. N/A * Community resources currently utilized None * Additional services required to return to the preadmission environment? No * Can the patient safely return to the preadmission environment? Yes * Has this patient been hospitalized within the prior 30 days at any hospital? No Patient Name: KATHERINE PINTO Page 51907 at 1727 All edits/amendments must be made on the electronic document DICTATION DATE: 08/19/181725 FIXTURE DESIGNER: CARMELO 08/19/181725 RPT#: [id number] DC DATE: STATUS: ADM IN [facility] [address] [place] [address] END OF REPORT
[~2018-08-18 05:05] MED LIST changes: +OMEPRAZOLE20 M1 PO
[2018-08-19] VITALS (66 sets, daily range): BP systolic 92–141; BP diastolic 35–69; Ht 172.7 cm; Wt 86.6 kg
[2018-08-19 06:29] LABS: HEMATOCRIT 29.3 % (42.0-54.0); HEMOGLOBIN 10.3 g/dL (13.5-17.5); MCH 33.4 pg (26.0-34.0); MCHC 35.2 g/dL (31.0-37.0); MCV 95.1 fL (80.0-100.0); RBC 3.08 10x6/uL (4.20-6.10); RDW 12.5 % (11.5-14.5); WBC 10.1 10x3/uL (4.8-10.8)
[2018-08-19 07:09] LABS: ANION GAP 13.1 mmol/L (8-16); CALCIUM 7.6 mg/dL (8.5-10.1); CARBON DIOXIDE 25.2 mmol/L (21.0-32.0); CREATININE - SERUM 1.6 mg/dL (0.6-1.3); POTASSIUM - SERUM 4.3 mmol/L (3.5-5.1)
[2018-08-20] VITALS (45 sets, daily range): BP systolic 100–153; BP diastolic 45–73
[2018-08-21] VITALS (14 sets, daily range): BP systolic 95–148; BP diastolic 42–74
== END 2018-08-21 14:45 | disposition home or self-care (01) | DRG 269 ==
LOC: D.SDCHOLD 05:05 → D.CVICU 09:43
PROVIDERS: Internal Medicine Cardiovascular Disease
PROC: 04V03DZ Restriction of Abdominal Aorta with Intraluminal Device, Percutaneous Approach (ICD-10-PCS; principal; 2018-08-18 07:30)
DX: I71.4 Abdominal aortic aneurysm, without rupture (principal); E78.5 Hyperlipidemia, unspecified; I10 Essential (primary) hypertension; K80.20 Calculus of gallbladder without cholecystitis without obstruction; K31.84 Gastroparesis; C61 Malignant neoplasm of prostate

== ENCOUNTER → 2019-03-11 12:23 | Outpatient (CLI) | payer MEDICARE, OTHER ==
[2018-08-19 13:17] VITALS: BMI 30.6
== END | disposition home or self-care (01) ==
LOC: D.CT 03-09 14:00
PROVIDERS: ATTEND Internal Medicine Cardiovascular Disease
DX: I71.4 Abdominal aortic aneurysm, without rupture (principal)